=== PATIENT | male | born 1960 | race Asian ===

== ENCOUNTER 2024-09-20 12:09 | Emergency (ER) | payer OTHER, SELFPAY ==
[2024-09-20 12:11] VITALS: BP 107/68
--- NOTE | 2024-09-20 13:46 | ED.GENMED ---
History of Present Illness
<Edis Petersen, DO - Last Filed: 09/20/24 14:37>
General
Chief Complaint: DVT/Possible Blood Clot
Time Seen by Provider: 09/20/24 12:26
<Kinza Costa MD, Resident - Last Filed: 09/20/24 14:45>
General
Source: patient and family (Patient's grandson)
Exam Limitations: none
Nursing documentation reviewed up to this point in time: agreed with
History of Present Illness
History of Present Illness:
Mr. Alonzo Pérez is a 64-year-old male with a PMH notable for gastritis, hypertension, who is presenting with right calf pain and swelling for 8 days. He points to the pain as running along the the anterior inner surface of his right lower leg, as
well as his posterior calf. He states the pain is 3 out of 10. He denies chest pain and shortness of breath.
He denies recent immobilization, travel, and surgery. He denies history of cancer. His last colonoscopy was 1 year ago. He endorses blood in his stool. He denies blood in his urine.
He states he takes aspirin, NSAIDs, a statin, and a medication for his gastritis.
The patient speaks Mandarin. A medical or surgical instrument maker assisted the interview.
Review of Systems
<Kinza Costa MD, Resident - Last Filed: 09/20/24 14:45>
Review of Systems
All Other Systems: ROS reviewed and negative except as documented in HPI and ROS
Phy Exam
<Kinza Costa MD, Resident - Last Filed: 09/20/24 14:45>
Physical Exam
Physical Exam:
Extremities:
Right calf larger than left calf
Posterior right calf has a 2 cm area of dark skin
No palpable posterior cords
Homans' sign negative
He was comfortably crossing his right lower leg over his left.
Lungs: No pleuritic breath sounds, Clear to auscultation bilaterally
Cardiovascular: Heart regular rate and rhythm
Abdomen: Normal bowel sounds, no tenderness to palpation
Course
<Edis Petersen, DO - Last Filed: 09/20/24 14:37>
Orders/Labs/Results
Orders:
Orders
09/20/24 12:16
Legs, Right US [US Periph Venous LOWER Ext RT] Urgent
Comment:
Reason For Exam: pain swelling
Vital Signs
Initial and Last Documented VS:
Initial Vital Signs
Temp Pulse Resp BP Pulse Ox
98.0 F 77 16 107/68 98
09/20/24 12:11 09/20/24 12:11 09/20/24 12:11 09/20/24 12:11 09/20/24 12:11
Last Documented Vital Signs
Temp Pulse Resp BP Pulse Ox
98.0 F 77 16 107/68 98
09/20/24 12:11 09/20/24 12:11 09/20/24 12:11 09/20/24 12:11 09/20/24 13:46
<Kinza Costa MD, Resident - Last Filed: 09/20/24 14:45>
Orders/Labs/Results
Orders:
Orders
09/20/24 12:16
Legs, Right US [US Periph Venous LOWER Ext RT] Urgent
Comment:
Reason For Exam: pain swelling
Vital Signs
Initial and Last Documented VS:
Initial Vital Signs
Temp Pulse Resp BP Pulse Ox
98.0 F 77 16 107/68 98
09/20/24 12:11 09/20/24 12:11 09/20/24 12:11 09/20/24 12:11 09/20/24 12:11
Last Documented Vital Signs
Temp Pulse Resp BP Pulse Ox
98.0 F 77 16 107/68 98
09/20/24 12:11 09/20/24 12:11 09/20/24 12:11 09/20/24 12:11 09/20/24 13:46
<Kinza Costa MD, Resident - Last Filed: 09/20/24 14:45>
MDM/Problems Addressed
Differential Diagnosis Includes:
DVT
Lymphedema
Infection: Insect bite, cellulitis
Calvo's cyst
MDM/Problems Addressed:
Right lower peripheral vascular ultrasound: Ruptured Calvo's cyst
Discharge with advised to seek egab-jym-ilqyhkp pain medicine if needed and follow-up with primary care and/or orthopedics.
Chronic conditions affecting care: HTN
<Edis Petersen, DO - Last Filed: 09/20/24 14:37>
*Pulse Oximetry
SaO2: 98
Oxygen Mode of Delivery: Room air
<Kinza Costa MD, Resident - Last Filed: 09/20/24 14:45>
*Pulse Oximetry
Patient hypoxic: no
*Critical Care Note
Total Time (30-74mins, 75-104mins- exclusive of procedures): Not Applicable
<Edis Petersen, DO - Last Filed: 09/20/24 14:37>
Update Note
Update Note:
2:37 PM ultrasound consistent with ruptured Calvo's cyst. Discussed return precautions and follow-up with orthopedics. Patient ambulate without difficulty
ED Attending Note
<Edis Petersen, DO - Last Filed: 09/20/24 14:37>
ED Attending Note
Patient seen and examined by attending physician: Yes
I performed a history and physical exam of patient and discussed management with resident, I reviewed resident's note and agree with documented findings and plan of care.: Yes
ED Attending Note:
I have seen and evaluated the patient with a wqqx-qv-[id number] encounter. I have spoken to the resident Dr. Costa and involved in the medical history, the physical exam, medical decision making.
Evaluation and management service: agree unless noted differently below.
Results interpretation: agree unless noted differently below.
Focused HPI: 64-year-old male presenting for evaluation of right calf pain and swelling. Patient does not recall any significant injury but there is evidence of ecchymosis to his right calf with some mild edema. No erythema.
Physical exam: Right calf with circular area of ecchymosis resembling a bruise. Distal extremity neurovascular intact. Mild pain with dorsiflexion
Medical Decision Making: Will obtain ultrasound to rule out DVT. If negative, we will discussed likely bruising and hematoma and outpatient follow-up
-
Portions of this chart may have been created with voice recognition software.� Occasional wrong word or��sound alike� substitutions may have occurred due to the inherent limitations of voice recognition software.
Discharge Plan
Departure
Patient Disposition: Home (Routine Discharge)
Date of Disposition: 09/20/24
Time of Disposition: 14:42
Patient with high blood pressure during this ER visit?: No
Discharge Problem:
Calvo's cyst, ruptured
Instructions: Calvo's Cyst (DC)
Referrals:
Santiago Sanders MD [Active, Orthopedics]
UNKNOWN - PT DOES,NOT KNOW [Family Provider]
Activity Restrictions/Additional Instructions:
You came to the ED from urgent care due to calf pain and swelling that was concerning for a deep venous thrombosis (blood clot). Ultrasound demonstrated a ruptured Calvo's cyst.
You may take lode-vmv-tejkohj NSAIDs for pain. Please follow-up with your primary care doctor and/or orthopedics. Is a pleasure to be a part of your care team.
Interventions
Interventions:
*Risk Screen - Suicide Last Done: 09/20/24 12:11
*Neglect/Abuse Screening Last Done: 09/20/24 12:11
ED- Cardiac Assessment Last Done: 09/20/24 12:41
ED- Pulmonary Assessment Last Done: 09/20/24 12:41
ED-Peripheral Vascular Assessment Last Done: 09/20/24 12:41
Discharge Date and Time
Discharge Date/Time: 09/20/24 14:39
Print Language: SAMI
== END 2024-09-20 14:39 | disposition home or self-care (01) ==
LOC: EMR 12:09
PROVIDERS: EMERGENCY PHYSICIAN Student in an Organized Health Care Education/Training Program
DX: S86.811A Strain of other muscle(s) and tendon(s) at lower leg level, right leg, initial encounter (principal); X58.XXXA Exposure to other specified factors, initial encounter; M79.661 Pain in right lower leg; R60.0 Localized edema; I10 Essential (primary) hypertension; Z79.82 Long term (current) use of aspirin; Z87.19 Personal history of other diseases of the digestive system
CPT/HCPCS: 99284; 93971